=== PATIENT | male | born 1990 | race Caucasian/White ===

== ENCOUNTER 2019-12-14 04:34 | Emergency (ER) | payer SELFPAY ==
[2019-12-14] MEDS ORDERED: MOTRIN800 MG PO (05:01)
[2019-12-14 05:50] VITALS: BP 141/69
== END 2019-12-14 05:50 | disposition home or self-care (01) | DRG 605 ==
LOC: ED 04:34
DX: S90.31XA Contusion of right foot, initial encounter (principal); Y04.0XXA Assault by unarmed brawl or fight, initial encounter; Y92.009 Unspecified place in unspecified non-institutional (private) residence as the place of occurrence of the external cause

== ENCOUNTER 2020-05-08 08:12 | Emergency (ER) | payer SELFPAY ==
[~2020-05-08] VITALS: Ht 165.1 cm; Wt 66.0 kg
[~2020-05-08 08:12] MED LIST: MOTRIN800 MG PO
[2020-05-08] MEDS ORDERED: BACTRIM DS1 TAB PO ×2 (09:28→09:31)
[2020-05-08] MEDS ORDERED: CEPHALEXIN500 M1 PO ×2 (09:28→09:31)
[2020-05-08 09:45] VITALS: BP 135/80
== END 2020-05-08 09:45 | disposition home or self-care (01) | DRG 603 ==
LOC: ED 08:12
PROC: 0H9FXZZ Drainage of Right Hand Skin, External Approach (ICD-10-PCS; principal; 2020-05-08)
DX: L02.511 Cutaneous abscess of right hand (principal); F17.210 Nicotine dependence, cigarettes, uncomplicated; B95.62 Methicillin resistant Staphylococcus aureus infection as the cause of diseases classified elsewhere

== ENCOUNTER 2020-05-10 08:25 | Emergency (ER) | payer SELFPAY ==
[~2020-05-10] VITALS: Ht 165.1 cm; Wt 65.0 kg
[~2020-05-10 08:25] MED LIST changes: +BACTRIM DS1 TAB PO; +CEPHALEXIN500 M1 PO
[2020-05-10 09:41] VITALS: BP 135/63
== END 2020-05-10 09:50 | disposition home or self-care (01) | DRG 603 ==
LOC: ED 08:25
PROC: 0H9FXZZ Drainage of Right Hand Skin, External Approach (ICD-10-PCS; principal; 2020-05-10)
DX: L02.511 Cutaneous abscess of right hand (principal); B95.62 Methicillin resistant Staphylococcus aureus infection as the cause of diseases classified elsewhere

== ENCOUNTER 2021-03-04 15:28 | Emergency (ER) | payer SELFPAY ==
[~2021-03-04] VITALS: Ht 165.1 cm; Wt 63.6 kg
[2021-03-04] MEDS ORDERED: KEFLEX500 MG PO (16:19)
[2021-03-04] MEDS ORDERED: BACTROBAN TOP (16:19)
[2021-03-04] MEDS ORDERED: BACTRIM DS1 TAB PO (16:19)
[2021-03-04 16:32] VITALS: BP 112/63
== END 2021-03-04 16:32 | disposition left against medical advice (07) | DRG 603 ==
LOC: ED 15:28
DX: L02.512 Cutaneous abscess of left hand (principal); Z91.19 Patient's noncompliance with other medical treatment and regimen

== ENCOUNTER 2022-02-23 09:20 | Emergency (ER) | payer SELFPAY ==
[~2022-02-23] VITALS: Ht 165.1 cm; Wt 63.6 kg
[~2022-02-23 09:20] MED LIST changes: +BACTROBAN TOP; +KEFLEX500 MG PO
[2022-02-23 10:00] VITALS: BP 111/73
[2022-02-23 10:11] LABS: HEMATOCRIT 42.5 % (39.0-50.0); HEMOGLOBIN 14.9 g/dl (14.0-18.0); IMMATURE GRANULOCYTES 0.5 % (0.0-5.0); MEAN CELL VOLUME 83.5 fL CALC (80.0-100.0); MEAN CORPUSCULAR HGB 29.3 pG CALC (26.0-32.0); MEAN CORPUSCULAR HGB CONC 35.1 g/dL CAL (32.0-36.0); NEUT# 4.34 thou/uL (1.82-7.42); RED BLOOD COUNT 5.09 mill/uL (4.70-6.10); RED CELL DISTRI WIDTH 13.4 % (11.5-15.5)
[2022-02-23 10:47] LABS: ALBUMIN 4.2 g/dL (3.2-5.0); ALKALINE PHOSPHATASE 110 u/l (38-126); ANION GAP 11 (6-22 (CALC)); BILIRUBIN, TOTAL 0.7 mg/dL (0.0-1.4); BUN 14 mg/dL (9-20); BUN/CREATININE RATIO 17 (12-20 (CALC)); CARBON DIOXIDE 24 mmol/l (22-30); CHLORIDE 106 mmol/l (95-108); CREATININE 0.8 mg/dL (0.7-1.3); GFR FOR AFR.AMER. > 60 ML/MIN (>=60 (CALC)); GFR OTHER RACES > 60 ML/MIN (>=60 (CALC)); POTASSIUM 3.5 mmol/l (3.5-5.1); SGOT/AST 23 u/l (17-59); SODIUM 138 mmol/l (137-146); TOTAL PROTEIN 6.6 g/dL (6.3-8.2)
[2022-02-23 11:00] VITALS: BP 119/80
[2022-02-23 11:30] VITALS: BP 116/72
[2022-02-23 11:40] VITALS: BP 116/72
== END 2022-02-23 11:41 | DRG 605 ==
LOC: ED 09:20
PROVIDERS: Emergency Medicine
PROC: 0HQ1XZZ Repair Face Skin, External Approach (ICD-10-PCS; principal; 2022-02-23)
DX: S01.81XA Laceration without foreign body of other part of head, initial encounter (principal); X79.XXXA Intentional self-harm by blunt object, initial encounter; Y93.89 Activity, other specified; Y92.810 Car as the place of occurrence of the external cause; Z59.00 Homelessness unspecified